=== PATIENT | male | born 1980 ===

== ENCOUNTER 2024-01-27 20:21 | Emergency (ER) | payer OTHER, SELFPAY ==
--- NOTE | 2024-01-27 | ECG_ITS ---
Test Reason : TACHY Blood Pressure : / mmHG Vent. Rate : 100 BPM Atrial Rate : 100 BPM P-R Int : 142 ms QRS Dur : 090 ms QT Int : 334 ms P-R-T Axes : 068 041 026 degrees QTc Int : 430 ms Normal sinus rhythm Minimal voltage criteria for LVH, may be normal variant ( Sokolow-Rust ) Borderline ECG No previous ECGs available Referred By: Generic ED Physician Electronically Signed By:KARRI SALMON MD
[2024-01-27 20:45] VITALS: BP 130/93; PULSE 117; RESP 18; TEMP 36.1; O2SAT 98; BMI 29.3
--- NOTE | 2024-01-27 20:46 | ED_ITS ---
HPI - Back Pain/Injury General Chief Complaint: Back Pain/Injury Stated Complaint: Back pain Related Data Allergies Allergy/AdvReac Type Severity Reaction Status Date / Time No Known Allergies Allergy Verified 01/27/24 20:49 [facility] Social History Social History Advance Directives: No Advance Directives Information Provided: No Physical Exam Vital Signs: Vital Signs: Last Vital Signs Temp 96.9 F 01/27/24 20:45 Pulse 117 H 01/27/24 20:45 Resp 18 01/27/24 20:45 BP 130/93 H 01/27/24 20:45 Pulse Ox 98 01/27/24 20:45 O2 Del Method Room Air 01/27/24 20:45 BMI result Body Mass Index 29.3 Course Course Course Narrative: This is a Rapid Medical Examination (RME) in triage, full HPI, ROS, assessment and plan per primary provider in the Main ED. 43 yo male presenting to evaluation of acute on chronic low back pain. Started on muscle relaxers at [facility] but no improvement. No trauma. No urinary symptoms. XR showed arthritis. reporting pain is 10/10. Plan: treat pain and reassess Reevaluation(s) Reevaluation #1: eloped prior to treatment Discharge Plan Discharge Clinical Impression: Low back pain Patient Disposition: Left W/O Completing Treatment Discharge Date/Time: 01/27/24 22:48
--- NOTE | 2024-01-27 21:26 | MHC.EDTECH ---
Patient brought into triage area,EKG taken and signed by provider.
== END 2024-01-27 22:48 | disposition left against medical advice (07) ==
PROVIDERS: Emergency Provider Emergency Medicine
DX: M54.50 Low back pain, unspecified (principal); R00.0 Tachycardia, unspecified
CPT/HCPCS: 93005; 99283

== ENCOUNTER → 2024-01-27 21:13 | Outpatient (BNV) | payer OTHER, SELFPAY | PROVIDERS: Emergency Provider Emergency Medicine; Visit Provider Internal Medicine Cardiovascular Disease | DX: R00.0 Tachycardia, unspecified (principal) | CPT/HCPCS: 93010 ==